=== PATIENT | male | born 1960 | race Caucasian/White ===

== ENCOUNTER 2021-03-19 13:48 | Observation (INO) ==
[2021-03-19] MEDS ORDERED: ENOXAPARIN 100 MG/ML SYRINGE SUBCUT STA (14:13)
[2021-03-19] MEDS ORDERED: NITROGLYCERIN 2% OINT 1 INCH/GM PACK TOP STA (14:13)
[2021-03-19] MEDS ORDERED: MORPHINE 4 MG/1 ML VIAL IV STA (14:13)
[2021-03-19] MEDS ORDERED: ALBUTEROL/IPRATROPIUM 3 ML NEB RESP TX PRN (15:34)
[2021-03-19] MEDS ORDERED: ALBUTEROL/IPRATROPIUM 3 ML NEB RESP TX STA (15:34)
[2021-03-19] MEDS ORDERED: DOCUSATE SODIUM 100 MG CAPSULE PO PRN (15:36)
[2021-03-19] MEDS ORDERED: ZALEPLON 5 MG CAPSULE PO PRN (15:36)
[2021-03-19] MEDS ORDERED: ACETAMINOPHEN 325 MG TABLET PO PRN (15:36)
[2021-03-19] MEDS ORDERED: ALUMINUM/MAGNES/SIMETH MAX STR 30 ML UDCUP PO PRN (15:36)
[2021-03-19] MEDS ORDERED: ONDANSETRON 4 MG/2 ML VIAL IV PRN (15:36)
[2021-03-19] MEDS ORDERED: POTASSIUM CHLORIDE 20 MEQ TABLET PO PRN (15:36)
[2021-03-19] MEDS ORDERED: guaiFENesin/DM ER 600-30 MG TABLET PO PRN (15:36)
[2021-03-19] MEDS ORDERED: MORPHINE 4 MG/1 ML VIAL IV PRN (15:36)
[2021-03-19] MEDS ORDERED: diphenhydrAMINE CAP 25 MG CAPSULE PO PRN (15:36)
[2021-03-19] MEDS ORDERED: hydrALAZINE 20 MG/1 ML VIAL IV PRN (15:36)
[2021-03-19] MEDS ORDERED: MAGNESIUM SULF RIDER 2 GM/50 ML PREMIX IV PRN (15:36)
[2021-03-19] MEDS ORDERED: MAGNESIUM SULF RIDER 4 GM/100 ML PREMIX IV PRN (15:36)
[2021-03-19 15:42] LABS: Basophils # 0.1 10*3/uL (0.0-0.2); Basophils % 0.5 % (0.0-0.8); Eosinophils # 0.2 10*3/uL (0.0-0.87); Eosinophils % 1.8 % (0.00-10.9); Hemoglobin 13.2 GM/DL (14.0-18.0); Immature Granulocytes % 0.3 %; Immature Granulocytes Absolute 0.03 #; Lymphocytes # 2.2 10*3/uL (1.4-4.0); Mean Corpuscular Volume 89.1 FL (87-102); Mean Platelet Volume 9.2 FL (9.6-12.0); Monocytes % 7.2 % (1.7-12.7); Neutrophils % 69.2 % (38.7-73.9); Platelet Count 204 T/CUMM (130-400); Red Blood Count 4.49 MC/CUMM (3.8-5.5); Red Cell Distribution Width 12.1 % (9.3-17.3); White Blood Count 10.3 T/CUMM (4-12)
[2021-03-19 15:51] LABS: INR 1.1; PT Patient Result 12.4 SECS (10.5-12.0)
[2021-03-19 16:04] LABS: Albumin 3.8 G/DL (3.4-5.0); Calcium 8.7 MG/DL (8.5-10.1); Osmolality,Calculated 282.3 MOS/KG (273-304); Potassium 3.8 MMOL/L (3.5-5.1); Total Protein 6.3 G/DL (6.4-8.2)
[2021-03-19] MEDS ORDERED: NITROGLYCERIN SL 0.4 MG TABLET SL PRN (16:11)
[2021-03-19] MEDS: buPROPion 75 MG TABLET PO SCH ×2 (16:38→21:04)
[2021-03-19] MEDS: carvediloL 3.125 MG TABLET PO SCH ×2 (16:38→21:05)
[2021-03-19] MEDS: clonazePAM 0.5 MG TABLET PO SCH ×2 (16:38→21:04)
[2021-03-19] MEDS: NITROGLYCERIN 2% OINT 1 INCH/GM PACK TOP SCH (20:34)
[2021-03-19] MEDS ORDERED: SIMVASTATIN 20 MG TABLET PO SCH (21:00)
[2021-03-19] MEDS: MORPHINE ER 15 MG TABLET PO SCH (21:04)
[2021-03-20] MEDS: NITROGLYCERIN 2% OINT 1 INCH/GM PACK TOP SCH ×2 (01:15→06:05)
[2021-03-20] MEDS ORDERED: ENOXAPARIN 100 MG/ML SYRINGE SUBCUT ONE (02:00)
[2021-03-20 04:57] LABS: Basophils % 0.6 % (0.0-0.8); Eosinophils # 0.2 10*3/uL (0.0-0.87); Hematocrit 36.2 VOL% (42.0-52.0); Hemoglobin 11.9 GM/DL (14.0-18.0); Immature Granulocytes % 0.3 %; Immature Granulocytes Absolute 0.02 #; Lymphocytes # 2.5 10*3/uL (1.4-4.0); Lymphocytes % 39.3 % (21.2-54.2); Mean Corpuscular HGB Conc 32.9 GM/DL (32-36); Mean Corpuscular Volume 91.4 FL (87-102); Mean Platelet Volume 9.7 FL (9.6-12.0); Monocytes % 6.4 % (1.7-12.7); Neutrophils % 50.4 % (38.7-73.9); Platelet Count 183 T/CUMM (130-400); Red Blood Count 3.96 MC/CUMM (3.8-5.5); Red Cell Distribution Width 12.1 % (9.3-17.3); White Blood Count 6.4 T/CUMM (4-12)
[2021-03-20 05:43] LABS: Calcium 8.5 MG/DL (8.5-10.1); Osmolality,Calculated 285.3 MOS/KG (273-304); Potassium 3.4 MMOL/L (3.5-5.1); Risk Ratio 4.04; Thyroid Stimulating Hormone 1.98 uIU/ml (0.358-3.74)
[2021-03-20 05:52] LABS: Microcytosis Slight; Platelet Estimate Adequate
[2021-03-20] MEDS ORDERED: ASPIRIN EC 81 MG TABLET PO SCH (09:00)
[2021-03-20] MEDS ORDERED: tiZANidine 4 MG TABLET PO SCH ×2 (09:00→21:00)
[2021-03-20] MEDS ORDERED: PANTOPRAZOLE 40 MG TABLET PO SCH (09:00)
[2021-03-20] MEDS ORDERED: hydroCHLOROthiazide 25 MG TABLET PO SCH (09:00)
[2021-03-20] MEDS ORDERED: OLMESARTAN 5 MG TABLET PO SCH (09:00)
[2021-03-20] MEDS ORDERED: CLOPIDOGREL 75 MG TABLET PO SCH (09:00)
[2021-03-20] MEDS ORDERED: POTASSIUM CHLORIDE 20 MEQ TABLET PO ONE (09:17)
[2021-03-20] MEDS: clonazePAM 0.5 MG TABLET PO SCH (09:51)
[2021-03-20] MEDS: buPROPion 75 MG TABLET PO SCH (09:56)
[2021-03-20] MEDS: MORPHINE ER 15 MG TABLET PO SCH (09:56)
[2021-03-20] MEDS ORDERED: MORPHINE ER 30 MG TABLET PO SCH (12:00)
[2021-03-20 12:54] VITALS: BP 117/84
== END 2021-03-20 12:38 | disposition home or self-care (01) ==
LOC: EDUNIT# → EDBD → N.ED 13:48 → N.TELES 13:48
PROVIDERS: ADMIT Internal Medicine Cardiovascular Disease; ATTEND Internal Medicine Cardiovascular Disease